=== PATIENT | female | born 1945 | race Hispanic/Latino ===

== ENCOUNTER 2022-01-30 16:52 | Inpatient (IN) | payer OTHER ==
[~2022-01-30] VITALS: Ht 160 cm; Wt 70.3 kg
[2022-01-30] MEDS ORDERED: DIGOXIN125 MCG PO (17:16)
[2022-01-30] MEDS ORDERED: XARELTO20 MG PO (17:16)
[2022-01-30] MEDS ORDERED: METOPROLOL TART25 MG PO (17:16)
[2022-01-30] MEDS ORDERED: LISINOPRIL5 MG PO (17:16)
[2022-01-30 17:45] LABS: BASOPHILS % 0.4 % (0.0-1.0); EOSINOPHILS # (AUTO) 0.1 (0.0-0.4); EOSINOPHILS % 0.5 % (0.0-6.0); HEMATOCRIT 34.4 % (34.2-44.1); LYMPHOCYTES # (AUTO) 1.8 (1.0-3.2); LYMPHOCYTES % 19.1 % (18.0-39.1); MEAN CORPUSCULAR HEMOGLOBIN 31.3 pg (28-32); MONOCYTES # (AUTO) 0.6 (0.2-0.8); MONOCYTES % 6.4 % (4.4-11.3); NEUTROPHILS % 73.1 % (38.7-80.0); PLATELET COUNT 218 x10e3/uL (140-360); RED BLOOD COUNT 3.51 x10e6/uL (3.6-5.1); RED CELL DISTRIBUTION WIDTH 13.8 % (11.7-14.4)
[2022-01-30 18:07] LABS: CLARITY,URINE SL CLOUDY (CLEAR); COLOR,URINE YELLOW (YELLOW)
[2022-01-30 18:08] LABS: KETONES,URINE TRACE (NEGATIVE); LEUKOCYTE ESTERASE ,URINE NEGATIVE (NEGATIVE); NITRITE,URINE NEGATIVE (NEGATIVE); PROTEIN,URINE DIPSTICK NEGATIVE (NEGATIVE); URINE UROBILINOGEN >=8 mg/dL (0.2 - 1)
[2022-01-30 18:23] LABS: BACTERIA,URINE MANY /HPF; EPITHELIAL CELLS,URINE FEW /LPF; RBC,URINE 21-50 /HPF (0-5); WBC,URINE (MAN) 0-5 /HPF (0-5)
[2022-01-30 18:34] LABS: ALBUMIN 3.7 g/dL (3.5-5.0); ANION GAP 19.2 mmol/L (8-16); CALCIUM 8.5 mg/dL (8.4-10.2); CREATININE, SERUM 0.79 mg/dL (0.57-1.11); POTASSIUM 3.2 mmol/L (3.5-5.1)
[2022-01-30 18:40] LABS: CREATINE KINASE MB 0.8 ng/mL (0-5.0)
[2022-01-30] MEDS ORDERED: ONDANSETRON HCL INJ 2MG/ML 2ML 2 MG/ML VIAL IV PRN (19:15)
[2022-01-30] MEDS ORDERED: LORAZEPAM INJ 2 MG/ML VIAL IV PRN (19:15)
[2022-01-30] MEDS ORDERED: SODIUM CHLORIDE FLUSH 10 ML SYR INJ PRN (19:15)
[2022-01-30] MEDS ORDERED: METOPROLOL TARTRATE INJ 1 MG/ML VIAL IV ONE (20:00)
[2022-01-30 21:00] VITALS: BP 134/82
[2022-01-31] VITALS (7 sets, daily range): BP systolic 105–120; BP diastolic 66–83
[2022-01-31] MEDS ORDERED: LEXAPRO10 MG PO (00:23)
[2022-01-31 06:15] LABS: CREATINE KINASE MB 1.7 ng/mL (0-5.0)
[2022-01-31 06:33] LABS: BASOPHILS # (AUTO) 0.1 (0.0-0.1); BASOPHILS % 0.5 % (0.0-1.0); EOSINOPHILS % 0.1 % (0.0-6.0); HEMATOCRIT 34.7 % (34.2-44.1); HEMOGLOBIN 11.1 g/dL (12.0-16.0); LYMPHOCYTES # (AUTO) 1.9 (1.0-3.2); LYMPHOCYTES % 19.2 % (18.0-39.1); MEAN CORPUSCULAR HEMOGLOBIN 31.3 pg (28-32); MEAN CORPUSCULAR VOLUME 97.7 fL (81-99); MONOCYTES # (AUTO) 0.9 (0.2-0.8); MONOCYTES % 8.6 % (4.4-11.3); NEUTROPHILS # (AUTO) 7.2 (2.1-6.9); NEUTROPHILS % 71.2 % (38.7-80.0); PLATELET COUNT 202 x10e3/uL (140-360); RED BLOOD COUNT 3.55 x10e6/uL (3.6-5.1); RED CELL DISTRIBUTION WIDTH 13.7 % (11.7-14.4)
[2022-01-31 06:47] LABS: ALBUMIN 3.5 g/dL (3.5-5.0); ALBUMIN/GLOBULIN RATIO 0.9 (0.8-2.0); ANION GAP 15.1 mmol/L (8-16); CALCIUM 8.4 mg/dL (8.4-10.2); CREATININE, SERUM 0.69 mg/dL (0.57-1.11); POTASSIUM 3.1 mmol/L (3.5-5.1)
[2022-01-31] MEDS ORDERED: RIVAROXABAN 20 MG TABLET PO SCH (09:00)
[2022-01-31] MEDS ORDERED: METOPROLOL TARTRATE 25 MG TAB PO SCH (09:00)
[2022-01-31] MEDS ORDERED: LISINOPRIL 2.5 MG TAB PO SCH (09:00)
[2022-01-31] MEDS: METOPROLOL TARTRATE 25 MG TAB PO SCH (09:30)
[2022-01-31] MEDS: LISINOPRIL 2.5 MG TAB PO SCH (09:30)
[2022-01-31] MEDS: DIGOXIN 0.125 MG TAB PO SCH (09:30)
[2022-01-31] MEDS: ESCITALOPRAM OXALATE 10 MG TAB PO SCH (09:45)
[2022-01-31] MEDS: LEVETIRACETAM 500 MG TAB PO SCH ×2 (09:45→16:15)
[2022-01-31] MEDS ORDERED: GADOBENATE DIMEGLUMINE 1 ML IV ONE (14:28)
[2022-01-31 15:22] LABS: CREATINE KINASE MB 1.2 ng/mL (0-5.0)
[2022-01-31] MEDS ORDERED: POTASSIUM CHLORIDE 20 MEQ TAB CR PO ONE (15:45)
[2022-02-01] VITALS (8 sets, daily range): BP systolic 95–133; BP diastolic 53–88
[2022-02-01] MEDS: DIGOXIN 0.125 MG TAB PO SCH (09:55)
[2022-02-01] MEDS: METOPROLOL TARTRATE 25 MG TAB PO SCH (09:55)
[2022-02-01] MEDS: LEVETIRACETAM 500 MG TAB PO SCH ×2 (09:55→17:20)
[2022-02-01] MEDS: ESCITALOPRAM OXALATE 10 MG TAB PO SCH (09:55)
[2022-02-01] MEDS: LISINOPRIL 2.5 MG TAB PO SCH (09:55)
[2022-02-01] MEDS ORDERED: ATORVASTATIN 40 MG TAB PO SCH (21:00)
[2022-02-02] VITALS: BP 125/77
[2022-02-02 04:00] VITALS: BP 112/81
[2022-02-02 07:00] LABS: ALBUMIN/GLOBULIN RATIO 0.8 (0.8-2.0); ANION GAP 14.3 mmol/L (8-16); CREATININE, SERUM 0.68 mg/dL (0.57-1.11); POTASSIUM 3.3 mmol/L (3.5-5.1)
[2022-02-02 07:37] VITALS: BP 128/82
[2022-02-02 09:07] VITALS: BP 115/50
[2022-02-02] MEDS: DIGOXIN 0.125 MG TAB PO SCH (09:49)
[2022-02-02] MEDS: LEVETIRACETAM 500 MG TAB PO SCH (09:49)
[2022-02-02] MEDS: METOPROLOL TARTRATE 25 MG TAB PO SCH (09:49)
[2022-02-02] MEDS: ESCITALOPRAM OXALATE 10 MG TAB PO SCH (09:49)
[2022-02-02] MEDS: LISINOPRIL 2.5 MG TAB PO SCH (09:50)
[2022-02-02 11:29] VITALS: BP 128/80
[2022-02-02] MEDS ORDERED: LISINOPRIL2.5 MG PO (12:18)
[2022-02-02] MEDS ORDERED: KEPPRA500 MG PO (12:18)
[2022-02-02] MEDS ORDERED: ONDANSETRON HCL 4 MG ORAL DISINTEGRATING TAB PO PRN (14:00)
[2022-02-02] MEDS ORDERED: RIVAROXABAN 20 MG TABLET PO SCH (17:00)
== END 2022-02-02 15:21 | disposition home health service (06) | DRG 101 ==
LOC: ER 17:32 → ERHOLD 19:18 → MED/SURG3 21:27
PROVIDERS: ADMIT Internal Medicine; ATTEND Internal Medicine
DX: R56.9 Unspecified convulsions (principal); I48.20 Chronic atrial fibrillation, unspecified; I10 Essential (primary) hypertension; Z79.01 Long term (current) use of anticoagulants; G30.9 Alzheimer's disease, unspecified; F02.80 Dementia in other diseases classified elsewhere, unspecified severity, without behavioral disturbance, psychotic disturbance, mood disturbance, and anxiety; Z86.73 Personal history of transient ischemic attack (TIA), and cerebral infarction without residual deficits; Z74.09 Other reduced mobility; Z20.822 Contact with and (suspected) exposure to COVID-19
CPT/HCPCS: 36415; 70450; 71045; 80053; 81001; 82550; 82553; 83735; 84484; 85025; 93005; 93306; 99284